=== PATIENT | male | born 1990 | race Caucasian/White ===

== ENCOUNTER 2017-02-08 11:29 | Emergency (ER) | payer SELFPAY ==
[~2017-02-08] VITALS: Ht 177.8 cm; Wt 77.1 kg
--- NOTE | 2017-02-08 11:53 | [facility]gent [facility] Report ---
History of Present Issue Date/Time Seen by Provider 02/08/17 1152 Visit Reason Pt arrived:Walked Presenting Problem:BODY ACHES, RUNNY NOSE AND SORE THROAT Location if Accident: Onset of symptoms date/time:/ or onset unknown for:MEDICAL HX UNKNOWN Have you (or family members/close friends) recently traveled outside the [place]? N If Yes, where/when: Have you had exposure to infectious disease within the past month? TB? Other? Specify: Patient state that he has been having pain and swelling in his throat cough and runny nose. States that his throat is raw and swollen and hurts when he swallows States that he feels achy all over and over all does not feel well State that he often has strep throat and frequently has to go to the doctor for it ALLERGIES Coded Allergies: No Known Allergies (08/15/16) History Medical History General CAD? No Angina: No OR: No Hypertension? No Hyperlipidemia? No CHF? No DVT? No PE? No COPD? No Asthma? Yes Anemia? No GERD? No Gastric ulcers? No GI Bleed? No Hernia? No Thyroid Problems? No Hypothyroidism? No CVA? No Seizures? No Diabetes? No Renal Insuffiency? No UTI? No Stones? No BPH? No GB Disease: No Nephritic Syndrome? No Asplenia? No Hepatitis? No Sickle Cell Disease? No Arthritis? No Migraines? No Cataracts? No Glaucoma? No MRSA? No HIV? No TB? No Anxiety? No Depression? No Cancer? No More? Yes Additional hx: PANCREATITIS 2012 Immunization HX DT/Tetanus Unknown Flu UNKNOWN Pneumonia REFUSES Surgical Hx Previous Surgery?N Family History Family HX Diabetes Yes CAD Yes Hypertension Yes Hyperlipidemia Yes Cancer Yes TB No Social History Smoking Hx Smoker: Current Every Day Smoker Tobacco: Yes Type Cigarettes Packs/day < 1 Pack Alcohol Alcohol: No Review of Systems All Other Systems Reviewed and Negative Constitutional chills, fever ENT nose discharge, nose congestion, throat pain. Respiratory cough Physical Exam Vital Signs Vital Signs Date Time Temp Pulse Resp B/P Pulse O2 O2 Flow FiO2 Ox Delivery Rate 02/08 1144 98.6 73 20 125/80 98 General Appearance Appears ill sitting on exam table Ear, Nose, Throat sinus pain/drainage, nasal congestion, tonsillar swelling, Tonsils enlarged swollen red, white patches noted on tonsils Respiratory Status Yes: trachea midline, chest symmetrical, non tender chest. No: respiratory distress. 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 No Results/Orders Laboratory Tests 02/08/17 1152: Influenza Type A Ag NOT DETECTED, Influenza Type B Ag NOT DETECTED, Group A Strep Screen NOT DETECTED Orders Procedure Date/time Status UT STREP SCREEN 02/08 1151 Complete UTC FLU A,B 02/08 1151 Complete Departure Departure Time of Disposition 1233 Disposition DC Home or Self Care(routine) Clinical Impression Primary Impression: Upper respiratory infection Qualifiers: URI type: acute tonsillitis Pharyngitis/tonsillitis etiology: unspecified etiology Qualified Code: J03.90 - Acute tonsillitis, unspecified Condition STABLE Patient Instructions Sore Throat Additional Instructions * Monitor Temp. Tylenol and/or Ibuprofen as needed. ER if fever is no less than 101 despite alternating Tylenol and Ibuprofen * Encourage fluids, water, Gatorade, powerade, pedialyte if /toddler/or child * Warm salt water gargles for throat irritation *Warm fluids *Sore throat lozenges *Sleep elevated Discharge Counseling Counseled pt/family regarding diagnosis, test results, medications/RX, home care, follow up needs Prescriptions Current Visit Scripts CEFDINIR (Cefdinir) 300 MG PO BID #20 CAP Methylprednisolone (Medrol Dose Flavia) 4 MG PO UD #1 FLAVIA TAKE DIRECTED ON PACKAGING at 1234
[2017-02-08 12:09] LABS: UTC STREP SCREEN NOT DETECTED (NOTDETECTED)
[2017-02-08 12:37] VITALS: BP 125/80
== END 2017-02-08 12:37 | disposition home or self-care (01) ==
LOC: UTC 11:29
PROVIDERS: Nurse Practitioner
DX: J03.90 Acute tonsillitis, unspecified (principal); F17.210 Nicotine dependence, cigarettes, uncomplicated